=== PATIENT | female | born 1985 ===

== ENCOUNTER 2016-08-08 10:22 | Inpatient (IN) | payer OTHER ==
[~2016-08-08] VITALS: Ht 167.6 cm; Wt 84.0 kg
[2016-08-08] VITALS (9 sets, daily range): BP systolic 107–137; BP diastolic 55–79
[2016-08-08] MEDS: PRENATAL VITAMIN TAB PO SCH (09:00)
[~2016-08-08 10:22] MED LIST: ACET500C PO; DIBU1OIN TOP; DOCU5LIQ PO; IBUP80TA PO; PRE-TAB3 PO; PRENMIS3 PO
[2016-08-08] MEDS ORDERED: PENICILLIN G POTASSIUM IV 5 MU in D5W MINI-BAG PLUS 100 ML IV STA (10:49)
[2016-08-08] MEDS ORDERED: OXYTOCIN 30 UNITS IN 0.9% NaCl 500ML IV BAG (J2590) As Ordered ONE (11:10)
[2016-08-08 11:22] LABS: MEAN CORPUSCULAR HGB CONC 34.7 g/dl (32.0-36.5); MEAN CORPUSCULAR VOLUME 92.2 fl (80.0-96.0); RED CELL DISTRIBUTION WIDTH 12.6 % (11.5-14.5); WHITE BLOOD COUNT 7.4 K/mm3 (4.0-10.0)
[2016-08-08 12:26] LABS: CORD GAS ABE V -2.6; CORD GAS HCO3 V 23.2 MEQ/L; CORD GAS O2 SAT V 66.4 %; CORD GAS PCO2 V 43.6 mmHg; CORD GAS PH V 7.344 UNITS; CORD GAS PO2 V 28.2 mmHg; CORD GAS SBC V 21.5 MEQ/L; CORD GAS TCO2 V 24.5 MEQ/L
--- NOTE | 2016-08-08 12:31 | HPEPDOC ---
Obstetrical History & Physical General Date of Admission Aug 08, 2016 at 10:46 History of Present Illness 30 yo @ 37+5 by LMP([id number]) and 8+6 wk US on [id number] presents to L &D with a FINAL [id number] with c/o CTX Q 2-3 min. Reports DFM. Denies LOF and VB. GBS positive. Chief Complaint: Contractions, term Information Provided By: Patient Age: 30 : 3 Term: 2 Pre-term: 0 Abortions: 0 Livin Care Care: Good Care Number of Visits: 6 Dating Final EDC: Aug 24, 2016 Final EDC for Daily Update: Aug 24, 2016 Final EDC by: LMP LMP: Nov 18, 2015 1st Trimester Date: Jan 17, 2016 Weeks + Days: 8.6 Estimated Date of Confinement: Aug 24, 2016 EGA at Admission: 37.5 Antepartum Course Diagnos(e)s 1. elevated 1 hour GTT, 3 hour WNL 2. fluid filled loops in bowel- PNC consult-declined amnio; f/u scan Apr no change Height (inches): 65 Pre- weight (lbs.): 157 Admission Weight (lbs.): 187 Change in Weight (lbs.): 30 Past Medical History Past Obstetrical History #1: Past Obstetrical History: Multigravida Date of Delivery: Mar 28, 2010 Gestation: 39 Type of Delivery: Spontaneous Vaginal Del. Sex of : Male Weight of Infant (grams): 3200 Complications: No Past Obstetrical History #2: Past Obstetrical History: Multigravida Date of Delivery: Nov 18, 2014 Gestation: 40 Type of Delivery: Spontaneous Vaginal Del. Sex of Infant: Male Weight of (grams): 2920 [employer] History: No pertinent history Past Medical History Medical History DENIES Surgical History: Denies/None Family History Significant Family History: No pertinent family hx Social History Social history [place] fyo [place] 19 [place] Marital Status: Family situation: Spouse/partner home Psychosocial History: No pertinent psych hx * Smoker: non-smoker Alcohol: Denies Drugs: denies Abuse Violence Screening Have you been hit/kicked/slapp: No Imunizations Tdap status: current ([id number]) Influenza Status: current ([id number]) Allergies Coded Allergies: No Known Allergies (Unverified , 11/18/14) Medications Scheduled Multivitamins/ ( Multivitamin + D 28-0.8 & 200 mg) 1 Mis Mis 1 TAB PO DAILY Physical Examination Physical Examination GENERAL: A&O x3 BREAST: Gravid ABDOMEN: Gravid and non-tender to touch. FETUS: VTX by Nathanael and SVE SVE- 9/100/-2, bulging bag EFW- 3900 grams HEART RATE: RRR, no m/r/g LUNGS: CTA EXTREMITIES: No edema. No clonus. DTR +1 non-pitting. Laboratory Data 24H [facility] Laboratory Tests 2 08/08/16 10:49: Serology Scanned Report Hepatitis B Testing CBC/BMP 6.44/12.8/37.1/174 Urine Culture: No Growth Pertinent Laboratoy Data Blood Type: B+ RBC Antibody Screen: Negative HIV: Negative Hepatitis B: Negative Hepatitis C: Unknown Rapid Plasma Reagin: Nonreactive Rubella: Immune Varicella: Immune Chlamydia/Gonorrhea: Negative Group B Streptococcus: Positive Quad Screen Test: Declined Cystic Fibrosis: Declined Glucose Tolerance Test: 150 (3 hour 77/162/140/106) Diag/Inter Therapy [place] negative Anatomy Ultrasound Ultrasound Date: Apr 04, 2016 Placenta Location: Posterior Normal Anatomy: No (Fluid filled loop of bowel) Placenta Previa: No Estimated Weight (grams): 331 Other Ultrasounds [id number]- EFW-880 grams; placenta post, no previa; multiple fluid filled loops of bowel [id number]- continue to note fluid filled loops of bowel [id number]- Posterior placenta; EFW- 1506 grams; dilated loops of bowel Steroid Therapy Steroid Therapy: No Vaginal Examination Dilation: 9 cm Effacement: 80+% Station: -2 Cervical Consistency: Soft Cervical Position: Anterior Presentation: Cephalic presentation Position: Vertex (occiput) Assessment Heart Rate (FHR): 130 Variability: Moderate Accelerations: None Decelerations: None Tocometer Contractions: Yes Frequency: regular (Q 2-3 min) Duration: less than 90 seconds Strength: palpated as strong, resting tone palp/soft Multi-drug resistant Organism: No history of MDRO Assessment/Plan Assessment 30 yo @ 37+5 by LMP([id number]) and 8+6 wk US on [id number] presents to L &D with a FINAL SONA-[id number] in active labor @ /-2. CAT I FHR tracing. GBS positive. Plan Admit and orient. Director Marketing Communications and consent. Diet:clear liquid GBS positive- treat per protocol Labs and IV per unit protocol Saline lock Anticipate RENETTA PETERSON CNM Aug 08, 2016 10:52
[2016-08-08] MEDS ORDERED: OXYTOCIN DRIP 30 UNITS in APPROPRIATE DILUENT 1 EA IV SCH (12:33)
[2016-08-08] MEDS: IBUPROFEN 800 MG TAB PO PRN (12:42)
[2016-08-08] MEDS ORDERED: DIBUCAINE 1% OINTMENT 30GM TOP PRN (12:45)
[2016-08-08] MEDS ORDERED: ONDANSETRON 4MG/2ML VIAL (J2405) IV PRN (12:45)
[2016-08-08] MEDS ORDERED: LIDOCAINE 1% MDV INJ 50 ML VIAL INFIL ONE (12:45)
[2016-08-08] MEDS ORDERED: ANUSOL HC CREAM 30GM TOP PRN (12:45)
[2016-08-08] MEDS ORDERED: PROMETHAZINE 25 MG TAB PO PRN (12:45)
[2016-08-08] MEDS ORDERED: MOM 30ML SUSPENSION UDC PO PRN (12:45)
[2016-08-08] MEDS ORDERED: DOCUSATE SODIUM 100 MG CAP PO PRN (12:45)
--- NOTE | 2016-08-08 13:08 | DNPDOC ---
[facility] Delivery Note Delivery Note DATE OF DELIVERY: Aug 08, 2016 at 1134 PREDELIVERY DIAGNOSIS: 37+5 weeks' gestation and labor. POST DELIVERY DIAGNOSIS: Delivered. PROCEDURE: SURVEY ASSOCIATE: Tiffanie Jones CNM ANESTHESIA: none ESTIMATED BLOOD LOSS: 300 mL. FINDINGS: 8 pound 8 ounce M infant, Score 4/8/9, nuchal cord tight times 1. DELIVERY SUMMARY: 30 yo G3 now P3003 presented to L&D @ 37+5 in active labor /-2 with a bulging bag. SROM clear fluid @ 1052 per RN, on exam found to have bulging bag, AROM with meconium noted. Pt had a strong desire to push @ 1115. Pushing started @ 1117. Patient continued to try and squeeze her legs towards each other. Reviewed with patient multiple times that she need to keep her legs pulled back. Delivery was via of a viable male infant to a clean field; the presented occiput anterior with a tight nuchal cord x 1, unable to reduce; anterior shoulder(right) delivered after multiple maneuvers: Bre and suprapubic pressure. then attempt to deliver post arm. Second and third RN to bedside and placed patient in Bre a second time with suprapubic pressure by mother's RN. Anterior shoulder released. Encouraged pt to continue to push. She continued to try and push her legs downward and together. Anterior shoulder delivered 2 min after head with mild downward traction, then the posterior shoulder delivered with mild upward traction; remainder of corpus delivered spontaneously; cord clamped x 2 and cut by myself ; resuscitation initiated at warmer by nursing staff and Dr. Marks. Pitocin was started with delivery of the infant; 3 vessel cord and normal placenta were delivered without complications approx 5 minutes later; fundal massage was applied and vaginal vault was swept for clots; vagina and perineum examined; natalie-clitoral laceration found to be hemostatic. Post vaginal laceration noted. Laceration repaired in usual fashion. Excellent hemostasis noted after repair; Fundus firm at U-1. WZY=980 ml, had 3/8/9; mother and infant are bonding well and were stable in the delivery room; anticipate routine PP course. Delivering Provider: DONNY Reinoso KELLI C. CNM Aug 08, 2016 13:08
[2016-08-08] MEDS ORDERED: PENICILLIN G POTASSIUM IV 2.5 MU in D5W 100 ML IV SCH (15:00)
[2016-08-09] MEDS: IBUPROFEN 800 MG TAB PO PRN ×2 (03:33→16:32)
[2016-08-09] MEDS: ACETAMINOPHEN 500 MG TAB PO PRN ×2 (06:05→16:32)
[2016-08-09 06:11] VITALS: BP 115/56
[2016-08-09] MEDS: PRENATAL VITAMIN TAB PO SCH (08:17)
--- NOTE | 2016-08-09 09:36 | IPN ---
DATE: 08/09/2016 This lady requested circumcision of her male . After discussing the risks and benefits of circumcision, the medical and nonmedical indications, the penile block and aftercare, she expressed understanding of the penile block and aftercare, signed and witnessed the consent form. We await clearance by the seed cutter.
[2016-08-09 18:00] VITALS: BP 120/70
[2016-08-10] MEDS: IBUPROFEN 800 MG TAB PO PRN (03:30)
[2016-08-10 06:02] VITALS: BP 105/59
[2016-08-10] MEDS: PRENATAL VITAMIN TAB PO SCH (07:56)
[2016-08-10] MEDS ORDERED: ANUS2.5C2 PR (09:36)
[2016-08-10] MEDS ORDERED: IBUP-1114 PO (09:36)
[2016-08-10] MEDS ORDERED: COLA100C3 PO (09:36)
[2016-08-10] MEDS ORDERED: ACET50TA PO (09:36)
[2016-08-10] MEDS ORDERED: DIBU1OIN TOP (09:36)
--- NOTE | 2016-08-10 09:39 | DSES ---
DATE OF ADMISSION: 08/08/2016 DATE OF DISCHARGE: This is a 30-year-old, 3, now para 3, admitted at 37 and 5 weeks in labor. She had a spontaneous vaginal delivery with shoulder dystocia, male weighing 8 pounds 8 ounces, of 4, 8 and 9. There was meconium at delivery. Dr. Marks was in attendance at delivery. She had a posterior vaginal wall laceration, which was repaired, a natalie clip laceration, which was hemostatic. On her second day, we discussed phlebitis, cystitis, mastitis, cellulitis, diet, exercise, pain management, perineal and breast wound care. On discharge, her blood pressure is 105/59, respirations 16, pulse 69 and temperature is 98.4. Her hemoglobin was 12.8, hematocrit 36.8 and platelets 144. Venous blood gas was 7.34, base excess -2.6. The rest the examination is unremarkable. She is breast-feeding and doing well, anxious to go home. She is normocephalic, atraumatic. Neck full range of motion. Pupils equal and reactive to light. Distal pulses symmetric. No evidence of deep venous thrombosis (DVT), pulmonary embolism (PE) or superficial phlebitis. Chest is clear bilaterally bases. No wheezes or rhonchi. No costovertebral angle (CVA) tenderness. Uterus 2 below, lochia is moderate and perineum with vaginal laceration healing well. No rashes, lesions or pruritus. No arthralgia, myalgia. No complaints of cough, wheezes, shortness of breath or dyspnea on exertion. No chest pain. No bleeding. Neuro complete. No incontinency, urgency or frequency. No nausea, vomiting, diarrhea or constipation. No past GYNECOLOGY, medical or surgical of note. She does not smoke or drink, does not abuse drugs. She is . There is no domestic violence. In summary, we have a 37 and 5 week of spontaneous labor, delivered a male infant, to be discharged today with medications and followup at 6 weeks .
== END 2016-08-10 11:24 | disposition home or self-care (01) | DRG 775 ==
LOC: M LDO 10:22 → M LDI 10:46 → M OBS 17:10
PROVIDERS: ADMIT Midwife; ATTEND Midwife
PROC: 10E0XZZ Delivery of Products of Conception, External Approach (ICD-10-PCS; principal; 2016-08-08)
PROC: 0HQ9XZZ Repair Perineum Skin, External Approach (ICD-10-PCS; 2016-08-08)
DX: O99.824 Streptococcus B carrier state complicating childbirth (principal); Z3A.37 37 weeks gestation of pregnancy; O66.0 Obstructed labor due to shoulder dystocia; O70.0 First degree perineal laceration during delivery; O69.1XX0 Labor and delivery complicated by cord around neck, with compression, not applicable or unspecified; Z37.0 Single live birth